=== PATIENT | female | born 1985 | race African-American/Black ===

== ENCOUNTER 2022-07-28 12:18 | Emergency (ER) | payer OTHER, SELFPAY ==
[2022-07-28 12:31] VITALS: BP 130/74; PULSE 93; RESP 16; TEMP 37.2; O2SAT 98
--- NOTE | 2022-07-28 12:31 | ED.GENADULT ---
HPI - General Adult General Chief complaint: Extremity Injury, Lower Stated complaint: pain in hip down to knee Time Seen by Provider: 07/28/22 12:31 Source: patient Mode of arrival: ambulatory Limitations: no limitations History of Present Illness HPI narrative: 37-year-old female presents with complaint back pain radiating to right-sided back, right hip right buttock down right leg. Patient has chronic back pain. Has been wetting week for her primary care physician to refill her hydrocodone prescription. Her primary care physician is out of town and will be back on Sunday. Patient called office prior to arrival in still has not been approved. Patient states that she has been taking hydrocodone since 2013 from back injury. Explained to patient that we do not refill narcotic prescriptions. She is asking for a Toradol injection. Ambulatory with steady gait. No loss of bowel or bladder. No weakness to lower extremities. All systems reviewed and negative except as noted above. Related Data Home Medications Medication Instructions Recorded Confirmed aripiprazole 15 mg tablet mg 07/28/22 budesonide-formoterol HFA 160 inhalation 07/28/22 mcg-4.5 mcg/actuation aerosol inhaler (Symbicort) diazepam 5 mg tablet mg 07/28/22 fluoxetine 40 mg capsule mg 07/28/22 hydrocodone 10 mg-acetaminophen tablet 07/28/22 325 mg tablet hydroxyzine HCl 50 mg tablet mg 07/28/22 ibuprofen 800 mg tablet mg 07/28/22 lisdexamfetamine 50 mg capsule mg 07/28/22 (Vyvanse) Allergies Allergy/AdvReac Type Severity Reaction Status Date / Time latex Allergy Mild Unknown Verified 07/28/22 12:29 oxycodone Allergy Unknown HIVES Verified 05/19/17 13:46 Review of Systems Review of Systems: CONSTITUTIONAL: Denies fever, chills, or sweats. EYES: Denies visual changes, redness, or discharge. ENT: Denies rhinorrhea, congestion, sore throat, or otalgia. CARDIOVASCULAR: Denies chest pain, palpitations, or edema. RESPIRATORY: Denies cough or dyspnea. GASTROINTESTINAL: Denies abdominal pain, nausea, vomiting, or diarrhea. GENITOURINARY: Denies dysuria or hematuria. SKIN: Denies rash or itching. MUSCULOSKELETAL: Reports low back pain radiating to right side. NEUROLOGIC: Denies headache, numbness, or weakness. PSYCHIATRIC: Denies anxiety or depression. All other systems reviewed are negative, except as documented in HPI. PMFSH Comments At time of signature, agree with nursing past medical, surgical, social and family history. There is no relevant family history pertinent to the presenting complaint. Exam Narrative: GENERAL: This is a well-nourished, well-developed patient, in no apparent distress. HEAD: normocephalic, atraumatic. EYES: PERRL. Sclera clear/white. Vision is grossly intact. EARS: External ears normal NOSE: External nose normal NECK: Neck supple, non-tender without lymphadenopathy, masses or thyromegaly. CARDIOVASCULAR: Regular rate and rhythm without murmurs, gallops, or rubs. RESPIRATORY: Clear to auscultation. Breath sounds equal bilaterally. No wheezes, rales, or rhonchi. SKIN: warm, Dry, intact with no suspicious lesions or rash, good texture and turgor. NEURO: awake, alert, and oriented to person, place and time. There were no obvious focal neurologic abnormalities. EXTREMITIES: No joint tenderness, effusion, or edema noted. BACK: midline tenderness to lower back, tenderness to right SI. Positive right straight leg raise. Or extremities strength 4/5 bilaterally. Course Course Level of Care: Express Care Visit Vital Signs Vital signs: Vital Signs Temperature 37.2 C 07/28/22 12:31 Pulse Rate 93 07/28/22 12:31 Respiratory Rate 16 07/28/22 12:31 Blood Pressure 130/74 07/28/22 12:31 Pulse Oximetry 98 07/28/22 12:31 Oxygen Delivery Room Air 07/28/22 12:31 Temperature 37.2 C 07/28/22 12:40 Pulse Rate 93 07/28/22 12:40 Respiratory Rate 16 07/28/22 12:40 Blood Pressure
[2022-07-28 12:40] VITALS: BP 130/74; PULSE 93; RESP 16; TEMP 37.2; O2SAT 98
[2022-07-28] MEDS: KETOROLAC (*BKC) 60 MG/2 ML VIAL IM (12:54)
== END 2022-07-28 13:13 | disposition home or self-care (01) ==
PROVIDERS: Emergency Provider Nurse Practitioner Family
DX: G89.29 Other chronic pain (principal); M54.50 Low back pain, unspecified; Z79.891 Long term (current) use of opiate analgesic; Z79.1 Long term (current) use of non-steroidal anti-inflammatories (NSAID)
CPT/HCPCS: 96372; 99213; G0463; J1885

== ENCOUNTER 2022-08-18 16:16 | Emergency (ER) | payer OTHER, SELFPAY ==
[2022-08-18 16:27] VITALS: BP 128/80; PULSE 94; RESP 20; TEMP 36.9; O2SAT 100
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
[2022-08-18] MEDS: KETOROLAC (*BKC) 60 MG/2 ML VIAL IM (16:55)
== END 2022-08-18 17:08 | disposition home or self-care (01) ==
PROVIDERS: Emergency Provider Nurse Practitioner; PCP Internal Medicine Gastroenterology
DX: S39.012A Strain of muscle, fascia and tendon of lower back, initial encounter (principal); S80.01XA Contusion of right knee, initial encounter; V43.62XA Car passenger injured in collision with other type car in traffic accident, initial encounter; J45.909 Unspecified asthma, uncomplicated
CPT/HCPCS: 96372; 99213; G0463; J1885